=== PATIENT | female | born 1980 | race Caucasian/White ===

== ENCOUNTER 2017-01-23 08:10 | Day surgery (SDC) | payer OTHER ==
[2017-01-22 14:35] VITALS: BMI 22.8
[2017-01-23] MEDS ORDERED: PROPOFOL 20 ML ONE (09:27)
[2017-01-23 09:37] VITALS: TEMP 97.8
[2017-01-23 10:10] VITALS: BP 101/60; PULSE 76
--- NOTE | 2017-01-24 13:56 | PATH ---
Surgical Pathology Report Patient Name: PRANAY HOFFMAN [facility]. Rec. #: [id number] /Age/Gender: 1980 (Age: 36) / F Account: [id number] Location: U-ENDOSCOPY Taken: 01/23/2017 Received: 01/23/2017 Reported: 01/24/2017 Physicians: Frederick Layne D.O. Specimen(s) Received BX RECTAL SCAR Clinical History Followup rectal cancer Rectal scar, history of rectal cancer Final Diagnosis RECTUM, SCAR, BIOPSY: RECTAL MUCOSA WITH LAMINA PROPRIA FIBROSIS AND MILD ARCHITECTURAL DISARRAY COMPATIBLE WITH SCAR. NO EVIDENCE OF DYSPLASIA/ADENOMA OR CARCINOMA. Electronically Signed Crow Villalba M.D. Gross Description Received in formalin, labeled "biopsy rectal scar" are 3 loomis, irregular portions of soft tissue averaging 0.3 cm in greatest dimension. The specimens are submitted in toto in one cassette. /01/23/2017 saudi/01/23/2017
== END 2017-01-23 10:10 | disposition home or self-care (01) ==
LOC: JASU-ENDO 08:10
PROVIDERS: ATTEND Internal Medicine Gastroenterology
PROC: 0DBP8ZX Excision of Rectum, Via Natural or Artificial Opening Endoscopic, Diagnostic (ICD-10-PCS; principal; 2017-01-23 09:00)
DX: Z85.048 Personal history of other malignant neoplasm of rectum, rectosigmoid junction, and anus (principal); K64.8 Other hemorrhoids
CPT/HCPCS: 84703; 88305-TC

== ENCOUNTER 2019-09-06 21:52 | Emergency (ER) | payer OTHER ==
[2019-09-06 22:07] VITALS: BP 100/43; PULSE 104; TEMP 98.2; BMI 36.9
--- NOTE | 2019-09-06 22:36 | PDOC ---
History of Present Illness - General Chief Complaint: Headache Stated Complaint: DIARRHEA/VOMITING Time Seen by Provider: 09/06/19 22:36 - History of Present Illness Initial Comments: 09/06/19 22:46 38 year old woman with no pmhx A0 who presents with nausea, vomiting and diarrhea that started around noon today. The patient had 2 episodes of nbnb emesis and 1 episode of nonbloody diarrhea. She denies any fevers but feels some chills. Her daughter at home has some vomiting and fevers earlier in the week. She denies any chest pain, short ness of breath or dysuria or hematuria. She has no other complaitns ROS GENERAL/CONSTITUTIONAL: No fever or chills. No weakness. HEAD, EYES, EARS, NOSE AND THROAT: No sore throat. CARDIOVASCULAR: No chest pain or shortness of breath RESPIRATORY: No cough, wheezing, or hemoptysis. GASTROINTESTINAL: + nausea, vomiting, diarrhea, No constipation. GENITOURINARY: No dysuria, frequency, or change in urination. MUSCULOSKELETAL: No joint or muscle swelling or pain. No neck or back pain. SKIN: No rash NEUROLOGIC: + headache, No vertigo, loss of consciousness, or change in strength /sensation. PE GENERAL: Awake, alert, and fully oriented, in no acute distress HEAD: No signs of trauma, normocephalic, atraumatic EYES: EOMI, sclera anicteric, conjunctiva clear ENT: oropharynx clear without exudates. Moist mucosa NECK: Normal ROM, supple LUNGS: No distress, speaks full sentences, clear to auscultation bilaterally HEART: Regular rate and rhythm, normal S1 and S2, no murmurs, rubs or gallops, peripheral pulses normal and equal bilaterally. ABDOMEN: Soft, nontender No guarding, no rebound. No masses EXTREMITIES : Normal inspection, Normal range of motion, no edema. No clubbing or cyanosis. NEUROLOGICAL: Cranial nerves II through XII grossly intact. Normal speech, no focal sensorimotor deficits SKIN: Warm, Dry, normal turgor, no rashes or lesions noted MDM DDX including but not limited to: gastroenteritis r/o pancreatitis ED Course: cbc, cmp, lipase, ua abd us preg US: single live IUP at 16 weeks 5 days. HR 129bpm labs at approx pt's baseline ua w/ uti will treat with macrobid d/c with pcp and obgyn f/u strict return precautions provdied patient expresses understanding and agrees to plan Unique Concepcion PGY2 Emergency Medicine Past History - Past Medical History Allergies/Adverse Reactions: Allergies Allergy/AdvReac Type Severity Reaction Status Date / Time No Known Allergies Allergy Verified 09/07/19 00:28 Home Medications: Ambulatory Orders Ferrous Sulfate [Feosol] 325 mg PO BID #60 ud 03/20/16 Nitrofurantoin Macrocrystal [Macrodantin] 100 mg PO BID 7 Days #13 capsule 09/07 No122/Iron/Folic Acid [ Multi Tablet] 1 each PO DAILY 09/07/19 Anemia: Yes Asthma: No Cancer: Yes (RECTAL CANCER (IN SITU 02/22)) Cardiac Disorders: No CVA: No COPD: No CHF: No Dementia: No Diabetes: No GI Disorders: No Disorders: Yes (UTI) HTN: No Hypercholesterolemia: No Liver Disease: No Seizures: No Thyroid Disease: No - Surgical History Abdominal Surgery: Yes Appendectomy: No Cardiac Surgery: No Cholecystectomy: No Lung Surgery: No Neurologic Surgery: No Orthopedic Surgery: No - Reproductive History (#): 2 Therapeutic (s) & number: No Spontaneous : 1 - Psycho Social/Smoking Cessation Hx Smoking History: Never smoked Have you smoked in the past 12 months: No Hx Alcohol Use: Yes (O[facility].) Drug/Substance Use Hx: No Substance Use Type: None Hx Substance Use Treatment: No *Physical Exam - Vital Signs Last Vital Signs Temp Pulse Resp BP Pulse Ox 98.2 F 104 H 19 100/43 L 100 09/06/19 22:04 09/06/19 22:04 09/06/19 22:04 09/06/19 22:04 09/06/19 22:04 ED Treatment Course - LABORATORY CBC & Chemistry Diagram: 09/06/19 23:53 09/06/19 23:53 Discharge - Discharge Information Problems reviewed: Yes Clinical Impression/Diagnosis: Gastroenteritis Condition: Stable Disposition: HOME - Admission No - Additional Discharge Information Prescriptions: Nitrofurantoin Macrocrystal [Macrodantin] 100 mg PO BID 7 Days #13 capsule - Follow up/Referral Referrals: Saurabh Anderson MD [Primary Care Provider] - Gerda Novak DO [Staff Physician] - - Patient Discharge Instructions Patient Printed Discharge Instructions: DI for Viral Gastroenteritis -- Adult Additional Instructions: You were seen in the ED for complaints of vomiting and diarrhea In the ED you were evaluated with labwork and diarrhea Your results showed a small UTI. You have antibiotics prescribed for your to be taken as prescribed Your Ultrasound showed a small possible blood collection in the uterus and you should follow up with OBGYN within 3 days. You have a referral to OBGYN if you need one. There does not appear to be an acute need for immediate hospitalization. You are advised to follow up with your Primary Care Physician within 1 week. Return to the ED immediately if you experience worsening nausea, vomiting, fevers or abdominal pain or any other concerning symptoms - Post Discharge Activity
[2019-09-06] MEDS ORDERED: METOCLOPRAMIDE HCL INJECTION 10 MG/2 ML VIAL IVPUSH ONE (22:37)
[2019-09-06] MEDS ORDERED: SODIUM CHLORIDE 1,000 ML IV SCH (22:45)
[2019-09-06] MEDS ORDERED: METOCLOPRAMIDE HCL INJECTION 10 MG/2 ML VIAL ONE (22:53)
--- NOTE | 2019-09-06 23:42 | PDOC ---
Documentation entered by Tyler Bella SCRIBE, acting as scribe for Penelope Toscano MD. Penelope Toscano MD: This documentation has been prepared by the Shayne buckley Nirvannie, SCRIBE, under my direction and personally reviewed by me in its entirety. I confirm that the documentation accurately reflects all work, treatment, procedures, and medical decision making performed by me. Attending Attestation - Resident Resident Name: Unique Concepcion - ED Attending Attestation I have performed the following: I have examined & evaluated the patient, The case was reviewed & discussed with the resident, I agree w/resident's findings & plan, Exceptions are as noted - HPI HPI: 09/06/19 23:31 Ms Lynn is a 38 yo F presenting to the ER with a complaint if nausea, vomiting ad diarrhea Pt is A0 Pt began having her symptoms today at noon She has had 2 episodes of vomiting (non bloody, non bilious) She has had 2 episode of diarrhea No abdominal pain Pt daughter = sick contact No vaginal bleeding No fevers Possible chills - Physicial Exam PE: 09/06/19 23:31 GENERAL: The patient is in no acute distress. ENT: Ears normal, nares patent, oropharynx clear without exudates. Moist mucous membranes. NECK: Normal range of motion, supple LUNGS: Breath sounds equal, clear to auscultation bilaterally. No wheezes, and no crackles. HEART:Regular rate and rhythm, normal S1 and S2 without murmur, rub or gallop. ABDOMEN: Soft, gravid abdomen, nontender to palpation, no voluntary guarding, no rebound EXTREMITIES: Normal range of motion, no edema. NEUROLOGICAL: Cranial nerves II through XII grossly intact. Normal speech. No focal neurological deficits. SKIN: Warm, Dry, normal turgor, no rashes or lesions noted. 09/06/19 23:41 - Medical Decision Making 09/06/19 23:41 38-year-old female presents emergency department with a complaint of nausea, vomiting x2, and one episode of diarrhea. Patient's ill contact is her daughter who had similar symptoms 4 days ago. We will do: Labs UA Ultrasound to assess Reglan IV fluid Reassess 09/07/19 00:37 Laboratory Tests 09/06/19 09/06/1919 23:45 23:53 23:53 WBC 5.9 Hgb 10.2 L Hct 30.0 L BUN 4.4 L Creatinine 0.5 L Urine Blood Negative Urine Nitrite Negative Ur Leukocyte Esterase 2+ H Urine WBC (Auto) 30 Urine RBC (Auto) 2 Urine Bacteria (Auto) 219.5 09/07/19 02:00 EXAM: OB LIMITED US and pelvic duplex HISTORY: Abdominal pain COMPARISON: None. FINDINGS: Ultrasound :Uterus is anteverted and measures centimeters in length. There is a single live IUP in breech position with estimated gestational age of 16weeks and 5days. There is a normal heart rate of 129beats per minute. There is a posterior placenta without previa or abruption, but there is a 2.4 x 2.0 cm anterior hypoechoic focus potentially representing a subchorionic bleed. The right ovary measures 3.0centimeters in length and appears normal. The left ovary measures 2.80centimeters in length and appears normal. There is no significant free fluid. Cervix is 4.1 cm in length and closed. Pelvic duplex: There is normal arterial and venous flow in both ovaries. IMPRESSION: Estimated age 16 weeks 5 days. 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 Possible 2.4 x 2.0 cm mid placental subchorionic bleed. Recommend surveillance sonography for further evaluation. Pt feels better, tolerating po US results given to patient She will need to follow up with OB for further evaluation of this area of bleeding Return to the ER for any other concerns or complaints
[2019-09-07 00:01] LABS: BASO % 0.1 % (0-2.0); EOS % 0.4 % (0-4.5); HEMOGLOBIN 10.2 GM/dL (10.7-15.3); LYMPH % 8.3 % (8-40); MCH 31.6 pg (25.7-33.7); MEAN CELL VOLUME 93.1 fl (80-96); MEAN PLT VOLUME 8.4 fl (7.5-11.1); MONO % 4.5 % (3.8-10.2); NEUT % 86.7 % (42.8-82.8); PLATELET COUNT 222 K/MM3 (134-434); RBC 3.22 M/mm3 (3.60-5.2); WHITE BLOOD COUNT 5.9 K/mm3 (4.0-10.0)
[2019-09-07 00:05] LABS: EPI CELLS 3.6 /HPF (0-5/HPF); HYALINE CASTS 1 /lpf (0-8); PH,URINE 6.5 (5.0-8.0); URINE APPEARANCE CLEAR; URINE BACTERIA 219.5 /hpf (NEGATIVE); URINE BILIRUBIN NEGATIVE (NEGATIVE); URINE COLOR YELLOW; URINE GLUCOSE (UA) NEGATIVE (NEGATIVE); URINE KETONE 1+ (NEGATIVE); URINE LEUK ESTERASE 2+ (NEGATIVE); URINE NITRITE NEGATIVE (NEGATIVE); URINE PROTEIN NEGATIVE (NEGATIVE); URINE RBC 2 /hpf (0-4); URINE UROBILINOGEN 0.2 mg/dL (0.2-1.0); URINE WBC 30 /hpf (0-5)
[2019-09-07 00:29] LABS: BILIRUBIN,TOTAL 0.4 mg/dL (0.2-1); BLOOD UREA NITROGEN 4.4 mg/dL (7-18); CALCIUM 8.9 mg/dL (8.5-10.1); CREATININE 0.5 mg/dL (0.55-1.3); POTASSIUM 3.7 mmol/L (3.5-5.1); TOT PROT 6.6 g/dl (6.4-8.2)
[2019-09-07] MEDS ORDERED: NITROFURANTOIN MACROCRYSTAL 50 MG CAPSULE (FP) PO SCH (00:45)
[2019-09-07] MEDS ORDERED: NITROFURANTOIN MACROCRYSTAL 50 MG CAPSULE (FP) ONE (01:00)
== END 2019-09-07 02:35 | disposition home or self-care (01) ==
LOC: JER 21:52
PROC: 3E033GC Introduction of Other Therapeutic Substance into Peripheral Vein, Percutaneous Approach (ICD-10-PCS; principal; 2019-09-06)
DX: K52.9 Noninfective gastroenteritis and colitis, unspecified (principal); N39.0 Urinary tract infection, site not specified; Z85.048 Personal history of other malignant neoplasm of rectum, rectosigmoid junction, and anus
CPT/HCPCS: 36415; 76815; 80053; 81003; 83690; 84702; 85025; 87086; 96374; 99285-25; J7030

== ENCOUNTER 2024-06-17 04:21 | Day surgery (SDC) | payer OTHER ==
[2024-06-13 14:53] VITALS: BMI 23.8
[2024-06-17] MEDS ORDERED: LIDOCAINE HCL 1%, 10 MG/ML (20ML VIAL) ONE (10:43)
[2024-06-17] MEDS ORDERED: PROPOFOL 20 ML ONE ×2 (10:55→11:31)
[2024-06-17] MEDS ORDERED: MIDAZOLAM HCL 2 MG/2 ML SINGLE DOSE VIAL ONE (10:55)
[2024-06-17] MEDS ORDERED: ONDANSETRON 4 MG/2 ML VIAL ONE (11:20)
[2024-06-17] MEDS ORDERED: DEXAMETHASONE SOD PHOSPHATE 4 MG/1 ML VIAL ONE (11:20)
[2024-06-17] MEDS ORDERED: KETOROLAC TROMETHAMINE 30 MG/1 ML VIAL ONE (11:21)
[2024-06-17] MEDS ORDERED: TRANEXAMIC ACID 1000 MG/10 ML VIAL ONE (11:21)
[2024-06-17] MEDS ORDERED: ceFAZolin SODIUM 1 GM VIAL ONE (11:22)
[2024-06-17] MEDS: LIDOCAINE HCL 1%, 10 MG/ML (20ML VIAL) NR ONE ×3 (11:25)
[2024-06-17] MEDS ORDERED: BACITRACIN ZINC 15 GM TUBE TOPICAL OINTMENT ONE (11:34)
[2024-06-17] MEDS ORDERED: oxyCODONE HCL 5 MG TABLET PO PRN (11:54)
[2024-06-17] MEDS ORDERED: ONDANSETRON 4 MG/2 ML VIAL IVPUSH PRN (11:54)
[2024-06-17] MEDS ORDERED: LACTATED RINGERS SOLUTION 1,000 ML IV SCH (12:00)
[2024-06-17 12:47] VITALS: BP 96/52; PULSE 65; RESP 17
[2024-06-17 12:50] VITALS: TEMP 97.8
== END 2024-06-17 13:35 | disposition home or self-care (01) ==
LOC: JASU-SURG 04:21
PROVIDERS: ATTEND Surgery
PROC: 0HBX0ZX Excision of Left Nipple, Open Approach, Diagnostic (ICD-10-PCS; principal; 2024-06-17 10:00)
DX: D24.2 Benign neoplasm of left breast (principal)
CPT/HCPCS: 81025; 88307-TC; 88341-TC; 88342-TC; 94760